=== PATIENT | male | born 1985 ===

== ENCOUNTER 2023-11-07 08:30 | Outpatient (REF) | payer OTHER, SELFPAY ==
--- NOTE | ~2023-11-07 | US_ITS ---
EXAMINATION: US RETROPERITONEAL COMPLETE (RENAL) CLINICAL INFORMATION: Microhematuria. COMPARISON: None available. TECHNIQUE: Real-time imaging of the kidneys and bladder. FINDINGS: RIGHT KIDNEY: 10.4 x 5.0 x 4.9 cm (SAG x AP x TRV). The kidney is normal in size, contour, and echogenicity. Renal cortical thickness is normal. No focal parenchymal lesions or hydronephrosis. Questionable nonobstructing 6 mm calculus in the lower pole. LEFT KIDNEY: 10.4 x 5.4 x 5.0 cm (SAG x AP x TRV). The kidney is normal in size, contour, and echogenicity. Renal cortical thickness is normal. No renal calculi or hydronephrosis. Questionable tiny 8 mm angiomyolipoma. BLADDER: Well distended and normal. Bilateral ureteral jets are demonstrated. Prevoid bladder volume is 332 mL. Postvoid bladder volume is 14 mL. ADDITIONAL FINDINGS: The prostate measures 18 mL. US/US retroperitoneal comp IMPRESSION: Questionable 6 mm nonobstructing calculus in the lower pole of the right kidney. This is an equivocal finding.
== END 2023-11-07 08:31 | disposition home or self-care (01) ==
LOC: HO.UMASIMG 08:30
PROVIDERS: Visit Provider Family Medicine
DX: I10 Essential (primary) hypertension (principal); R31.21 Asymptomatic microscopic hematuria; R12 Heartburn
CPT/HCPCS: 76770